=== PATIENT | female | born 1965 | race Caucasian/White ===

== ENCOUNTER 2017-07-01 12:50 | Outpatient (CLI) | payer MEDICARE, OTHER ==
[~2017-07-01] VITALS: Ht 170.2 cm; Wt 88.5 kg
[~2017-07-01 12:50] MED LIST: ALPRAZOLAM0.5 MG PO; CREON 120000 U-1 ECC PO; DOCUSATE SODIU100 MG PO; FLOMAX 0.4MG C0.4 MG PO; GABAPENTIN300 MG PO; LASIX 40MG. TAB40 MG PO; LEVOTHYROXINE0.1 MG PO; MIRALAX17 GM/PACK PO; MS CONTIN 100M100 MG PO; OMEPRAZOLE20 MG PO; POTASSIUM CHLO20 ME2 PO; PROMETHAZINE HC25 M1 PO; ROXICODONE30 MG PO; XARELTO20 MG PO
[2017-07-01 13:45] VITALS: BP 134/82
[2017-07-01 14:15] VITALS: BP 128/76
[2017-07-01 14:45] VITALS: BP 110/63
== END 2017-07-01 15:05 | disposition home or self-care (01) ==
LOC: COP 12:50
DX: C25.9 Malignant neoplasm of pancreas, unspecified (principal)
CPT/HCPCS: J1642; P9047